=== PATIENT | female | born 1930 | race Caucasian/White ===

== ENCOUNTER → 2017-09-12 | Outpatient (CLI) | payer MEDICARE, OTHER | LOC: COL.VAS 12:30 | DX: I87.8 Other specified disorders of veins (principal); I83.018 Varicose veins of right lower extremity with ulcer other part of lower leg ==

== ENCOUNTER 2017-09-22 07:13 | Outpatient (CLI) | payer MEDICARE, OTHER ==
[2017-09-22] VITALS (8 sets, daily range): BP systolic 139–177; BP diastolic 56–109; PULSE 61–74; TEMP 98–98.4
[~2017-09-22] VITALS: Ht 167.6 cm; Wt 171.7 kg
[2017-09-22 07:49] LABS: MEAN CELL VOLUME 98 fl (80.0-100.0); MEAN CORPUSCULAR HGB CONC 34 g/dl (33.0-37.0); PLATELET COUNT 102 K/mm3 (130-400); RED BLOOD COUNT 3.64 M/mm3 (4.10-5.30); WHITE BLOOD COUNT 4.8 K/mm3 (4.8-10.8)
[2017-09-22 07:50] LABS: HEMATOCRIT 35.5 % (37.0-47.0); HEMOGLOBIN 11.9 g/dl (12.5-16.0); MEAN CORPUSCULAR HEMOGLOBIN 33 pg (27.0-31.0)
[2017-09-22 07:53] LABS: INR 1.1 (0.8-3.0); PROTHROMBIN TIME 12.3 SECONDS (9.7-12.8)
[2017-09-22 07:57] LABS: CREATININE, serum 0.69 mg/dL (0.52-1.25)
== END 2017-09-22 15:30 | disposition home or self-care (01) ==
LOC: COL.VAS 07:13
PROVIDERS: Radiology Diagnostic Radiology
DX: I83.012 Varicose veins of right lower extremity with ulcer of calf (principal); L97.219 Non-pressure chronic ulcer of right calf with unspecified severity
CPT/HCPCS: C1894; J0171; J2250; J3010; J3370; J7040; J7050; J7120

== ENCOUNTER → 2017-09-29 | Outpatient (CLI) | payer MEDICARE, OTHER | LOC: COL.VAS 08:00 | DX: Z09 Encounter for follow-up examination after completed treatment for conditions other than malignant neoplasm (principal); I83.018 Varicose veins of right lower extremity with ulcer other part of lower leg; Z98.890 Other specified postprocedural states ==